=== PATIENT | female | born 1990 | race Caucasian/White ===

== ENCOUNTER → 2016-11-29 | Outpatient (CLI) | payer BC ==
--- NOTE | 2016-11-29 10:25 | KCIC ---
PROCEDURE Pelvic ultrasound HISTORY Right lower quadrant pain for 2 weeks, heavy periods COMPARISON None FINDINGS Multiple transabdominal sonographic images of the pelvis are submitted. Pelvic structures are not well visualized. Transvaginal ultrasound: Multiple transvaginal sonographic images of the pelvis are submitted. There is a small quantity of free fluid present. There is mild fluid with internal echoes of the cervix. There is likely a partially septate uterus. Uterus was estimated at 7.4 x 3.8 x 5.7 centimeters. Endometrium on the patient's right side measured 0.6 cm, on the left 0.3 cm. Right ovary measured 2.6 x 2.4 x 1.9 centimeters. Left ovary measured 2.7 x 1.1 x 1.9 centimeters. There is normal low resistance vascularity of the ovaries bilaterally. IMPRESSION 1. There is likely partially septate uterus. There is mild slightly complex fluid or blood products of the cervix, stated history of beginning of menstrual cycle. There is minimal nonspecific free fluid in pelvis although may be physiologic. Electronically signed by: Angel Humphries MD (Nov 29, 2016 10:24:25)
== END | disposition home or self-care (01) ==
LOC: KCIC US 07:56
PROVIDERS: ATTEND Obstetrics & Gynecology
DX: R10.31 Right lower quadrant pain (principal)
CPT/HCPCS: 76830; 76856

== ENCOUNTER → 2017-08-31 | Outpatient (CLI) | payer BC ==
--- NOTE | 2017-08-31 09:15 | RAD ---
Thyroid ultrasound, 08/31/2017: History: Thyroid nodules, abnormal CT of the neck The right lobe of the gland measures 7 x 2 x 2 cm, while the left lobe of the gland measures 4.7 x 1.5 x 1.5 cm. There are multiple thyroid nodules. The largest nodule lies posteriorly in the lower pole of the right lobe of the gland. It is predominantly solid and isoechoic with the thyroid parenchyma, with smaller cystic components. It is oval-shaped. It measures 2.6 x 1.4 x 1.2 cm. Its margins are smooth. No calcifications are seen. There is an adjacent rounded nodule at the junction of the right lobe of the gland and thyroid isthmus measuring 1.4 x 1.7 x 1.8 cm. Its margins are smooth. It is predominantly cystic with a small component of intraluminal solid mural nodularity. There are small internal echogenic foci without definite calcification. According to TI-RADS criteria the sonographic features of this nodule are moderately suspicious. A 1.2 x 0.9 x 0.7 cm smooth nodule is present in the posterior aspect of the upper pole of the left lobe of the gland. It demonstrates cystic and solid components. It is wider than tall. No internal calcifications are seen. IMPRESSION: Multinodular thyroid gland as described above. While the sonographic features of these nodules are nonspecific, the complex nodule at the junction of the right lobe and isthmus does demonstrate suspicious features warranting ultrasound-guided biopsy. The larger dominant solid nodule in the lower pole of the right lobe of the gland could also be aspirated at that time.
== END | disposition home or self-care (01) ==
LOC: US 08:04
PROVIDERS: ATTEND Nurse Practitioner Family
DX: E04.2 Nontoxic multinodular goiter (principal)
CPT/HCPCS: 76536

== ENCOUNTER → 2017-09-07 | Outpatient (CLI) | payer BC ==
--- NOTE | 2017-09-08 09:23 | RAD ---
Ultrasound-guided right thyroid biopsy biopsy #1, 09/07/2017: History: Suspicious thyroid nodules A previous ultrasound study demonstrated a multinodular gland. There is a complex, partially cystic nodule in the medial aspect of the right lobe of the gland involving the isthmus. A second larger solid nodule is present more posterolaterally in the lower pole of the right lobe of the gland. We first targeted the more medial nodule which was labeled as being in the isthmus. Under local anesthesia, aseptic conditions and sonographic guidance a 25-gauge needle was passed into this nodule via an anteromedial approach. 4 separate aspirates were obtained and sent to pathology for evaluation. Ultrasound-guided right thyroid biopsy #2, 09/07/2017: We then targeted the more lateral solid nodule in the lower pole of the right lobe of the gland. Utilizing a similar approach for 25-gauge aspirates were obtained from this nodule. The materials were sent to pathology for evaluation. Hemostasis was obtained. The patient tolerated the procedures well and left the department in good condition. The pathology results are pending. ALCON
== END | disposition home or self-care (01) ==
LOC: US 13:03
PROVIDERS: ATTEND Nurse Practitioner Family
DX: E04.2 Nontoxic multinodular goiter (principal)
CPT/HCPCS: 60300; 76942

== ENCOUNTER 2018-06-20 06:40 | Observation (INO) | payer BC ==
[2018-06-20] VITALS (10 sets, daily range): BP systolic 82–106; BP diastolic 32–63
[~2018-06-20] VITALS: Ht 160 cm; Wt 54.2 kg
[2018-06-20] MEDS: IV RINGERS,LACTATED 1000ML 1,000 ML IV SCH ×2 (07:00→11:04)
[2018-06-20] MEDS ORDERED: LIDOCAINE 1% PF 2 ML VIAL. ID PRN (07:00)
[2018-06-20] MEDS ORDERED: ONDANSETRON PF 4 MG/2 ML VIAL. IV PRN ×2 (07:00→10:00)
[2018-06-20] MEDS ORDERED: SCOPOLAMINE 1.5MG PATCH. TD ONE (07:45)
[2018-06-20 07:50] LABS: U PREG PATIENT NEGATIVE (NEG)
[2018-06-20] MEDS ORDERED: SUCCINYLCHOLINE 200 MG/10 ML VIAL. ONE (07:55)
[2018-06-20] MEDS ORDERED: fentaNYL PF VIAL 250 MCG/5 ML VIAL ONE (07:55)
[2018-06-20] MEDS ORDERED: MIDAZOLAM HCL/PF 2 MG/2 ML VIAL. ONE (07:55)
[2018-06-20] MEDS ORDERED: BUPIVACAINE-EPI 0.5%-1:200000 50 ML VIAL. INJ ONE (08:27)
[2018-06-20] MEDS ORDERED: DEXAMETHASONE SOD PHOS 20 MG/5 ML VIAL. ONE (08:39)
[2018-06-20] MEDS ORDERED: ONDANSETRON PF 4 MG/2 ML VIAL. ONE (08:39)
[2018-06-20] MEDS ORDERED: PROPOFOL 20 ML IV ONE (08:39)
[2018-06-20] MEDS ORDERED: SEVOFLURANE 61 TO 120 MINUTES. IH ONE (08:39)
--- NOTE | 2018-06-20 09:51 | PDOC4 ---
Operative Note Operative Note Date: 06/20/2018 Preoperative diagnosis: Right thyroid mass and isthmus nodule Postoperative diagnosis: Same Procedure: Right thyroidectomy with Isthmusectomy Specimen: Right thyroid with isthmus Surgeon: Felipe Parham.: River Dictation: Patient is a 28-year-old female who's had a right thyroid nodule for a couple of years was FNA 2 years ago was benign but is getting larger and she is developing difficulty with swallowing on the right side. She also has by ultrasound a small nodule of the isthmus. Procedure of right thyroidectomy with isthmusectomy was explained to the patient detail was benefits were also discussed including bleeding infection injury to the recurrent laryngeal nerve alternatives to this procedure also discussed with patient seemed understanding gave both verbal and written consent to have the procedure performed. Patient was taken to the operative room placed in supine position general anesthesia was initiated once patient was asleep and intubated her neck was prepped and draped usual sterile fashion using ChloraPrep Nims stimulator was also placed. An incision horizontally across the neck to figure breast above the sternal notch was made with 15 blade scalpel after been injected with half percent Marcaine with epinephrine this was carried down through the subcutaneous tissues electrocautery excise the platysmas muscle a flap was propagated inferiorly with blunt and sharp dissection down to the sternal notch and superiorly to above the thyroid cartilage. The strap muscles in the midline were incised and the muscles were taken off the thyroid with blunt and sharp dissection to the right side. Right thyroid was palpated there is a large nodule in the midportion of the thyroid the adherent tissues were taken off the thyroid with electrocautery and Harmonic. The edges returned to the superior pole this. The superior vessels were encircled with a 2-0 silk tie and transected with the Harmonic. Tensions were then turned to the inferior thyroid pole its vessels were also tied with 2-0 silk ties the thyroid was rolled towards the midline staying close to the thyroid gland tissues were taken down with the Harmonic the recurrent laryngeal nerve was not visualized the great care was taken to stay close to the thyroid the Mckinley ligament was taken down with the harmonic and the thyroid gland was sent for pathology with a stitch in the superior pole. Hemostasis deemed to be appropriate and the strap muscles in the midline were closed with a running 3-0 Vicryl platysmas muscle was reapproximated with 3-0 Vicryl interrupted sutures and the skin was approximate 4 septic Monocryl Mastisol Steri-Strips and island dressing were applied. Patient was waken expanded in the operating room taken recovery in stable condition all sponge instrument needle counts listed as correct estimated blood loss 30 mL. INGRID HARRY MD Jun 20, 2018 09:51
[2018-06-20] MEDS ORDERED: MORPHINE SULFATE 2 MG/ML VIAL. IV PRN (10:00)
[2018-06-20] MEDS ORDERED: oxyCODONE/APAP 5/325 1 TAB TABLET PO PRN ×2 (10:00)
[2018-06-20] MEDS ORDERED: 0.9 % SODIUM CHLORIDE 10 ML DISP.SYRIN. IV PRN (10:00)
[2018-06-20] MEDS: PROCHLORPERAZINE 10 MG/2 ML VIAL. IV PRN ×2 (10:08→10:27)
[2018-06-20] MEDS ORDERED: KETOROLAC 30 MG/ML VIAL. ONE (10:23)
[2018-06-20] MEDS ORDERED: HALOPERIDOL LACTATE 5 MG/ML VIAL. IVP ONE (10:45)
[2018-06-20] MEDS: IV DEXTROSE 5%-LACT RINGERS 1,000 ML IV SCH ×2 (12:19→23:51)
[2018-06-20] MEDS: KETOROLAC 15 MG/ML VIAL. IV SCH ×2 (12:20→17:27)
[2018-06-21] MEDS: IV DEXTROSE 5%-LACT RINGERS 1,000 ML IV SCH (00:07)
[2018-06-21 02:18] VITALS: BP 93/47
[2018-06-21 03:05] VITALS: BP 90/43
[2018-06-21] MEDS: KETOROLAC 15 MG/ML VIAL. IV SCH ×2 (05:52)
[2018-06-21 07:00] VITALS: BP 89/37
--- NOTE | 2018-06-21 08:53 | DISCH ---
DISCHARGE INSTRUCTIONS Condition on Discharge Condition on Discharge: Stable Activity After Discharge Activity Instructions for Disc: Resume previous activity Exercise Instruction after Dis: Progress as tolerated Driving Instructions after Dis: Do not drive today (while taking pain meds) Diet after Discharge Diet after Discharge: Regular Wound Incision Care Wound/Incision Care: May get incision wet, No wound care needed Contacting the after DC Call your doctor for: Concerns you may have Follow-Up Follow up with: Dr Wang 2 weeks, call to schedule [phone] JACI TOBIN APRN Jun 21, 2018 08:53
[2018-06-21] MEDS ORDERED: OXYC1TAB7 PO (08:54)
--- NOTE | 2018-06-21 08:57 | PDOC3 ---
Discharge Summary Visit Information Date of Admission: Jun 20, 2018 Date of Discharge: Jun 21, 2018 Admitting Diagnosis: Right thyroid mass and isthmus nodule Final Diagnosis Right thyroid mass and isthmus nodule Brief Hospital Course Allergies Allergies Coded Allergies Type Severity Reaction Last Updated Verified Penicillins Allergy Unknown Rash 06/15/18 Yes amoxicillin Allergy Unknown Rash 06/15/18 Yes fentanyl Allergy Unknown Nausea and Vomiting 06/15/18 Yes hydrocodone Allergy Unknown Nausea and Vomiting 06/15/18 Yes phenytoin Allergy Unknown Rash 06/15/18 Yes Vital Signs Vital Signs Date Time Temp Pulse Resp B/P (MAP) Pulse Ox O2 Delivery O2 Flow Rate FiO2 06/21/18 07:00 98.1 75 16 89/37 (54) 95 Room Air 98.1 06/20/18 10:10 10 Lab Results Laboratory Tests Test 06/20/18 06:30 Urine Test Negative (NEG) Brief Hospital Course Ms. Nunes is a 28 old female who presented with thyroid mass. She underwent Right thyroidectomy with Isthmusectomy. Postoperatively tolerating diet, no voice issues, and swallowing well. On exam no neck swelling, incision c/d/i, no ecchymosis. Ready for discharge home Discharge Information Condition at Discharge: Stable Follow Up: Weeks (2) Disposition/Orders: D/C to Home Scheduled PRN Oxycodone Hcl/Acetaminophen (Oxycodone-Acetaminophen 5-325) 1 Each Tablet, 1 TAB PO PRN Q4HRS PRN for MILD PAIN, 1ST CHOICE, #30 Ref 0 Prescribed by: Jaci Tobin on 06/21/18 0854 JACI TOBIN APRN Jun 21, 2018 08:57
--- NOTE | 2018-06-22 14:08 | PATHOLOGY ---
[facility] Accession Number: [id number] . 01 Material submitted: . PART A: RIGHT PERITHYROID MASS - FS PART B: RIGHT THYROID WITH ISTHMUS . 01 Clinical history: . Right thyroid mass . 02 Diagnosis: A. Right perithyroid mass, biopsy: - Fibroadipose tissue - no evidence of malignancy. . B. Thyroid tissue, right thyroid lobectomy: - Adenomatous (colloid) nodules, the largest measuring 2.8 cm in greatest dimension. - No parathyroid glands identified. . (JPM:mml; 06/22/18) [facility]/06/22/2018 . 02 Comment: The entire thyroid lobe is submitted for histologic evaluation. There is no evidence of malignancy. . (JPM:mml; 06/22/18) . 02 Electronically signed: . Paul Delgado MD, Pathologist NPI- [id number] . 01 Gross description: . A. The specimen is received fresh for intraoperative consultation and is designated "right perithyroid mass". This consists of a small segment of yellow-red soft tissue measuring 0.2 cm in greatest dimension. This is submitted entirely for frozen section as FSA1. The tissue remaining for frozen section is submitted for permanent sections as A1. . B. The specimen is received fresh and is designated "right thyroid with isthmus". This consists of a lobe of reddish purple thyroid tissue which measures 5.5 x 3.5 x 2.0 cm in greatest dimension. There is a stitch attached to the medial inferior pole of the thyroid lobe. The thyroid capsule appears intact. There is focal roughening of the posterior capsular surface. There is a nodule of the lateral inferior thyroid lobe measuring up to 2.8 cm in greatest dimension. The capsular surface is inked. The lobe is serially sectioned from superior to inferior. As previously mentioned, there is a gold gelatinous appearing well-circumscribed nodule of the inferior lateral thyroid lobe measuring up to 2.8 cm in greatest dimension. There is a small similar appearing gold gelationous nodule of the medial inferior thyroid lobe measuring up to 0.7 cm in greatest dimension. The remainder of the thyroid has a reddish purple meaty appearance. No frozen section is performed. The specimen is affixed in formalin prior to additional sectioning. The sections are submitted as follows: The entire thyroid lobe is submitted from superior to inferior as B1-B9. (JPM:bola; 06/20/2018) . . INTRAOPERATIVE CONSULTATION WITH FROZEN SECTION: (Paul Delgado M.D.) . Right perithyroid mass: - Fibroadipose tissue - no evidence of malignancy. . The results are telephoned to Dr. Wang in the operating room. . . Frozen section performed at , [address] [place] [id number]. [facility]/ . 02 Pathologist provided ICD-10: E04.1 . 02 CPT . 204941, 981326, 362302 Specimen Comment: A courtesy copy of this report has been sent to Specimen Comment: [phone], . Specimen Comment: Report sent to / DR GONZALEZ Performed at: 01 [facility] [address], [place], [place] [id number] MD Frankie Pino MD Phone: [phone] Performed at: 02 [facility] [address], [place] [id number] MD Paul Delgado MD Phone: [phone]
== END 2018-06-21 10:20 | disposition home or self-care (01) ==
LOC: SURG 06:40 → 4 NORTH 09:51
PROVIDERS: ADMIT Surgery; ATTEND Surgery
DX: E04.1 Nontoxic single thyroid nodule (principal)
CPT/HCPCS: 60210; 81025; 88305; 88307; 88331; 96374; 96376; A7015; G0378; G0379; J0330; J0780; J1100; J1630; J1885; J1956; J2250; J2405; J2704; J3010; J7120; J2270